=== PATIENT | male | born 2000 | race Caucasian/White ===

== ENCOUNTER 2022-04-11 21:57 | Emergency (ER) | payer MEDICAID, SELFPAY ==
[2022-04-11 21:59] VITALS: BP 189/75; PULSE 66; RESP 14; TEMP 36.1; O2SAT 98; BMI 36.8
--- NOTE | 2022-04-11 22:31 | EX.ED.DYSGE1 ---
HPI History of Present Illness Chief Complaint: Bite Narrative Narrative: Patient is a 21-year-old male with no significant past medical history. He states that over the last 2 to 3 days he noticed a small lesion to his left forearm. He states there is now surrounding redness and warmth. He denies any injury fevers or chills. He denies any history of immunosuppression. He states he is concerned he is developing an infection from possible insect bite and therefore comes in for evaluation. PFSH PFSH Medical History Non-smoker Medical History no medical history no medical history Home Medications clindamycin HCl 300 mg capsule 300 mg PO 4X/DAY 7 days #28 caps 04/11/22 [Rx Last Taken Unknown] Allergy/AdvReac Type Severity Reaction Status Date / Time No Known Allergies Allergy Verified 04/11/22 21:59 Social History Smoking Status: Never smoker ROS ROS ED Constitutional Constitutional ED: Denies chills or fever(s) ENT ENT ED: Denies sore throat Cardiovascular Cardiovascular: Denies chest pain Respiratory/Chest Respiratory/Chest: Denies cough or dyspnea Gastrointestinal Gastrointestinal: Denies abdominal pain, diarrhea, nausea or vomiting Genitourinary Genitourinary ED: Denies dysuria Musculoskeletal Musculoskeletal: Denies myalgias Integumentary Reports other Details: Positive left forearm redness/swelling ; Denies rash Neurologic Neurologic: Denies headache(s) Hematologic/Lymphatic Hematologic/Lymphatic: Denies easy bleeding or easy bruising EXAM Physical Exam Const Vital Signs: 04/11/22 21:59 04/11/22 22:03 Temperature 97 F L Temperature Source Temporal Pulse Rate 66 Respiratory Rate 14 Respiratory Effort Normal Respiratory Pattern Normal Blood Pressure 189/75 H Blood Pressure Mean 113 Pulse Ox 98 Oxygen Delivery Method Room Air Positive well nourished and well developed General Appearance ED: well developed Eyes PERRL and EOMs intact bilaterally Neck supple Resp normal respiratory effort and clear to auscultation bilaterally Cardio regular rate and regular rhythm Extremity Extremity Narrative: Left upper extremity is neurovascular intact. Patient has a small less than half centimeter area of fluctuance with slight pustule formation to the volar aspect of the left mid forearm. Extending out from this approximately 2 cm in diameter is asymmetric erythema and warmth consistent with cellulitis. No lymphangitic streaking present. Remainder of the exam is normal Neuro oriented x3 and CN's II-XII intact bilaterally Sensorium / Orientation: alert Psych mental status grossly normal Skin Skin Narrative: Soft tissue changes to the left forearm consistent with early abscess with surrounding cellulitis as documented above MDM MDM MDM Narrative Medical decision making narrative: Patient presented to the ER afebrile. He had no report or signs of trauma. By exam he has a small developing early abscess with mild surrounding cellulitis. He is not immunosuppressed and without a fever or signs of lymphangitic streaking I do not feel there is need for laboratory study. Patient replaced on antibiotics and is otherwise safe for discharge. Based on the small size of the early abscess I do not believe it is amenable to incision and drainage at this time. Discharge Plan Triage Chief Complaint: Bite ED Provider: Lazarus Rai Dx/Rx/DC Orders Clinical Impression: Cellulitis of left forearm Instructions: ED Cellulitis Prescriptions: New clindamycin HCl 300 mg capsule 300 mg PO 4X/DAY 7 Days Qty: 28 0RF Primary Care Provider: Care Physician,No Primary Referrals: Celeste Pretty MD [Med Staff - [employer]] - 1 Week if not improving Care Physician,No Primary [Primary Care Provider] - Activity Restrictions/Additional Instructions: Your history and exam today is consistent with early soft tissue infection. Please take your antibiotics as directed and use warm compresses over the area to help with drainage. If you develop a fever over 100.4 or worsening redness despite taking your antibiotics please return to the ER for repeat evaluation. Disposition Disposition: Home, Self Care
[2022-04-11] MEDS: Clindamycin HCl 150 MG Capsule 300 MG PO (22:40)
[2022-04-11 22:42] VITALS: BP 165/72; PULSE 86; RESP 18; O2SAT 98
== END 2022-04-11 22:42 | disposition home or self-care (01) ==
PROVIDERS: Emergency Provider Emergency Medicine; Visit Provider Emergency Medicine
DX: L03.114 Cellulitis of left upper limb (principal)
CPT/HCPCS: 99282